=== PATIENT | male | born 1935 | race Caucasian/White ===

== ENCOUNTER 2017-05-08 15:36 | Inpatient (IN) | payer OTHER ==
[~2017-05-08] VITALS: Ht 172.7 cm; Wt 107.6 kg
--- NOTE | ~2017-05-08 | EKG ---
[address] [place] [address] ELECTROCARDIOGRAM REPORT Name: CARLOZ ROBBINS Room #: 354-P ADM IN M.R.#: [id number] Admission: 05/08/17 Attend Phys: Ian Kearns MD Discharge: Date of : 39 Report #: [id number] THIS REPORT FOR: //name// [facility] Test Date: 2017-05-08 Test Time: 19:59:36 Pat Name: CARLOZ ROBBINS Department: Room: 354 P Gender: M Skating Carhop: JLROMANA : 1935 Requested By: Azael Aelman Order Number: [id number] MD: Brady Ortiz Measurements Intervals Randolph Rate: 78 P: -2 SC: 181 QRS: 64 QRSD: 178 T: -83 QT: 447 QTc: 510 Interpretive Statements Sinus rhythm with ventricular pacing Compared to ECG 09/28/2010 14:04:56 Ventricular pacing is now present Electronically Signed On 05-09-2017 9:06:22 SASH CLAMP OPERATOR by Brady Ortiz [email or web address] <ELECTRONICALLY SIGNED> By: Brady Ortiz MD, [facility] 05/09/17905 58 58 Brady Ortiz MD, FAC /EPI
--- NOTE | ~2017-05-08 | CNG ---
[facility] [place] [address] CYTO-NONGYN REPORT PROCEDURE Name: ROSENDOCARLOZ Luisa Room #: 354-P DIS IN M.R.#: [id number] Admission: 05/08/17 Date of : 39 Discharge: 05/11/17 Report #: [id number] Path Case #: [id number] CYTOPATHOLOGY REPORT COLLECTION DATE: 05/09/2017 RECEIVED DATE: 05/09/2017 SUBMITTING PHYS: Dr. Azael Aleman OTHER PHYS: Dr. Zhen Kearns M.D. CLINICAL HISTORY: COPD exacerbation, Increased SOA SPECIMEN(S) RECEIVED: A.Sputum * * * * * * * * * * * * FINAL DIAGNOSIS: A. Sputum: - No malignant cells identified. - Alveolar macrophages, squamous cells, inflammatory cells and mucoid debris identified. PATHOLOGIST: Bryson Ballard M.D. REPORT ELECTRONICALLY SIGNED BY: Bryson Ballard M.D. DATE/TIME: 05/13/2017 11:13 * * * * * * * * * * * * GROSS PATHOLOGY: A. Sputum: The specimen is submitted unfixed, labeled "Carloz Velasco Luisa". Received by the Cytology Department is three mL of cloudy colorless fluid. One ThinPrep slide was prepared. (mm 05.09.2017) CARDBOARD CUTTER(S): APOLINAR Ruiz([facility]) INITIAL CPT CODE(S): A; 18435 Professional services performed by [facility] at [facility] [address], [place] [address] Technical services performed by [facility] at [address] [place] [address]., [address], [place] [address]. [facility] [address] [place] [address], [facility] [address] [place] [address] PHONE: [phone] [facility] [address] [place] [address] CYTO-NONGYN REPORT PROCEDURE Name: CARLOZ VELASCO Room #: 354-P DIS IN M.R.#: [id number] Admission: 05/08/17 Date of : 39 Discharge: 05/11/17 Report #: [id number] Path Case #: [id number] DIRECTOR: Solo Zavala M.D. * * * END OF REPORT * * *
[~2017-05-08 15:36] MED LIST: ADVAIR 500-501 EACH INH; ALPRAZOLAM 0.50.5 M1 PO; CELEBREX PO; CELEXA40 MG PO; DESYREL50 MG PO; GLUCOPHAGE500 MG PO; KLOR-CON 1010 MEQ PO; LASIX 40 MG TAB40 M1 PO; LOVASTAT20 PO; MAG-OX 400 TAB400 M1 PO; OXYBUTYNIN 5 MG5 M1 PO; PLAVIX 75 MG TA75 MG PO; PREDNISONE 10 M10 M1 PO; PROAIR HFA8.5 GM; PROVENTIL INH; SENNA-LAX8.6 MG PO; SINGULAIR 10 MG10 M1 PO; SPIRIVA INH; TAMSULOSIN HCL0.4 MG PO; TRIFLUOPERAZINE5 MG PO; [UNRECOGNIZED DRUG - OTHER] PO
[2017-05-08 15:50] VITALS: BP 105/69
[2017-05-08 18:51] LABS: HEMATOCRIT 37.4 % (42.0-52.0); HEMOGLOBIN 12.6 gm/dL (14.0-18.0); MCH 30.8 pg (26.0-34.0); MCHC 33.7 g/dL (28.0-37.0); MCV 91.4 fL (80.0-100.0); RBC 4.09 mil/uL (4.50-6.00); RDW 14.1 % (10.5-14.5); WBC 6.8 thou/uL (4.0-11.0)
[2017-05-08 18:59] LABS: CALCIUM 8.4 mg/dL (8.5-10.1); CREATININE 0.9 mg/dL (0.7-1.3); POTASSIUM 3.7 mmol/L (3.5-5.1)
[2017-05-08 19:03] LABS: ALBUMIN 3.3 g/dL (3.4-5.0); TOTAL BILIRUBIN 0.6 mg/dL (<0.1-1.0); TOTAL PROTEIN 5.9 g/dL (6.4-8.2)
[2017-05-08 20:00] VITALS: BP 120/73
[2017-05-08 20:54] LABS: BE(vivo) 2.8 mmol/L (-2 to +3); HCO3 27.8 mmol/L (22.0-26.0); PO2 81.1 mmHg (80.0-100.0); pH 7.418 (7.360-7.450); sO2 96.1 % (92.0-98.0)
[2017-05-09 07:55] VITALS: BP 137/62
[2017-05-09 11:37] VITALS: BP 126/90
[2017-05-09 15:59] VITALS: BP 114/86
[2017-05-09 19:30] VITALS: BP 124/66
[2017-05-10 04:20] VITALS: BP 159/69
[2017-05-10 07:50] VITALS: BP 130/74
[2017-05-10] MEDS ORDERED: PREDNISONE 10 M10 MG PO (13:24)
[2017-05-10] MEDS ORDERED: LEVAQUIN 500 M500 M2 PO (13:24)
[2017-05-10 15:48] VITALS: BP 127/61
[2017-05-10 19:25] VITALS: BP 117/54
[2017-05-11 03:30] VITALS: BP 121/50
[2017-05-11 07:30] VITALS: BP 138/73
[2017-05-13 01:08] LABS: ADENOVIRUS Negative (Negative); INFLUENZA A Negative (Negative); INFLUENZA B Negative (Negative); METAPNEUMOVIRUS Negative (Negative); PARAINFLUENZA 1 Negative (Negative); PARAINFLUENZA 2 Negative (Negative); PARAINFLUENZA 3 Negative (Negative); RHINOVIRUS Positive (Negative); RSV A Negative (Negative); RSV B Negative (Negative)
== END 2017-05-11 13:36 | disposition home or self-care (01) | DRG 189 ==
LOC: 3W 15:36
PROVIDERS: Hospitalist; Internal Medicine Pulmonary Disease
DX: J96.21 Acute and chronic respiratory failure with hypoxia (principal); J44.1 Chronic obstructive pulmonary disease with (acute) exacerbation; I10 Essential (primary) hypertension; E11.9 Type 2 diabetes mellitus without complications; F39 Unspecified mood [affective] disorder; Z99.81 Dependence on supplemental oxygen; Z95.0 Presence of cardiac pacemaker; Z87.891 Personal history of nicotine dependence; Z79.899 Other long term (current) drug therapy
CPT/HCPCS: 10779

== ENCOUNTER → 2017-06-20 | Outpatient (CLI) | payer OTHER ==
[~2017-06-20] MED LIST changes: +LEVAQUIN 500 M500 M2 PO; +PREDNISONE 10 M10 MG PO
== END ==
LOC: RAD 10:10
DX: J44.9 Chronic obstructive pulmonary disease, unspecified (principal); J18.9 Pneumonia, unspecified organism; K31.89 Other diseases of stomach and duodenum